=== PATIENT | female | born 1970 | race Caucasian/White ===

== ENCOUNTER 2019-12-02 20:48 | Emergency (ER) | payer OTHER ==
[2019-12-02 20:59] VITALS: BP 151/85
--- NOTE | 2019-12-02 21:15 | ER Document Report ---
HPI - HPI Time Seen by Provider: 12/02/19 21:07 Context: Patient is a 49-year-old female who presents emergency department with a chief complaint of a rash to her torso, right foot, and bilateral hands. Patient states that she may have gotten bit by ants. Denies any difficulty breathing, shortness of breath, or any other symptoms. She took half a Benadryl, but did not have any relief of her rash. - CONSTITUTIONAL Constitutional: DENIES: Fever, Chills - EENT EENT: DENIES: Sore Throat, Nasal Drainage-Clear, Nasal Drainage-Purulent, Congestion, Eye problems - NEURO Neurology: DENIES: Headache - CARDIOVASCULAR Cardiovascular: DENIES: Chest pain - RESPIRATORY Respiratory: DENIES: Trouble Breathing, Coughing - GASTROINTESTINAL Gastrointestinal: DENIES: Nausea, Patient vomiting - DERM Skin Color: Normal Skin Problems: Rash Past Medical History - General Information source: Patient - Social History Smoking Status: Unknown if Ever Smoked Family History: Reviewed & Not Pertinent Vertical Provider Document - CONSTITUTIONAL Agree With Documented VS: Yes Exam Limitations: No Limitations General Appearance: No Apparent Distress - HEENT HEENT: Atraumatic, Normocephalic, PERRLA - NECK Neck: Normal Inspection - RESPIRATORY Respiratory: Breath Sounds Normal, No Respiratory Distress - CARDIOVASCULAR Cardiovascular: Regular Rate, Regular Rhythm Pulses: Normal: Radial - MUSCULOSKELETAL/EXTREMETIES Musculoskeletal/Extremeties: FROM - NEURO Level of Consciousness: Awake, Alert, Appropriate Motor/Sensory: No Motor Deficit, No Sensory Deficit - DERM Integumentary: Warm, Dry, Rash - Bilateral hands, bilateral chest, right great toe Course - Re-evaluation Re-evalutation: 12/02/19 21:38 Patient's rash is consistent with urticaria. She will be placed on Pepcid, Benadryl, and prednisone. She will follow-up with a primary care provider in the area. Advised her to establish a primary care provider, as she has not seen one. I have a very low suspicion for any life-threatening etiology at this time. Very low suspicion for necrotizing fasciitis. Follow-up precautions were given. Verbal discharge instructions were given to the patient. They verba lized understanding. They are stable for discharge. - Vital Signs Vital signs: Temp Pulse Resp BP Pulse Ox 98.8 F 86 16 151/85 H 97 12/02/19 20:57 12/02/19 20:57 12/02/19 20:57 12/02/19 20:57 12/02/19 20:57 Discharge - Discharge Clinical Impression: Rash Condition: Stable Disposition: HOME, SELF-CARE Additional Instructions: You are seen today in the emergency department for a rash, which is consistent with possible allergic reaction. You can take Benadryl 25 to 50 mg every 4-6 hours as needed. Please take Pepcid 40 mg twice a day for the next 3 days. You are also being sent home with steroids. Please take them as directed. Establish a primary care provider and follow-up with them. Prescriptions: Prednisone [Deltasone 20 mg Tablet] 3 tab PO DAILY 5 Days #15 tablet Famotidine [Pepcid 20 mg Tablet] 40 mg PO BID #12 tablet
== END 2019-12-02 21:15 | disposition home or self-care (01) ==
LOC: ER 20:48
DX: R21 Rash and other nonspecific skin eruption (principal)
CPT/HCPCS: 99282